=== PATIENT | female | born 1980 | race Caucasian/White ===

== ENCOUNTER 2020-11-19 17:46 | Emergency (ER) | payer MEDICAID ==
[2020-11-19] MEDS ORDERED: Acetaminophen 500 MG Tab PO ONE (18:16)
--- NOTE | 2020-11-19 19:37 | EDM.PDOC ---
ED HPI GENERAL MEDICAL PROBLEM - General Chief Complaint: Head Injury Stated Complaint: "Got hit by a softball." Time Seen by Provider: 11/19/20 18:05 Source of Information: Reports: Patient History Limitations: Reports: No Limitations - History of Present Illness INITIAL COMMENTS - FREE TEXT/NARRATIVE: Susana is a 40 yo female who presents to the ED, accompanied by son's girlf latrell, after getting hit in the top of the head with a baseball. She was at her son's game in [place] standing behind home plate. A foul ball hit her on the top left side of her head. It was witinessed and son's girlfriend states she did not lose consciousness. States she stood there for a second and then walked over to her car. Was able to get into the vehicle and she brought her here. States she immediately smoked a cigarette in her car and afterwards wanted to sleep. Susana remembers getting hit by a ball, some parts she states is a little fuzzy, but otherwise remembers what happened. She states her vision was initially blurry but that has subsided. Has a large lump on the top of her head. Upon arrival patient had a GCS of 15 and A&O X 3. Headache Pain Score (Numeric/FACES): 10 - Related Data Allergies Allergy/AdvReac Type Severity Reaction Status Date / Time No Known Allergies Allergy Verified 11/19/20 19:14 Home Meds: Home Meds Multivitamin [Daily Multiple Vitamin] 1 tab PO DAILY 10/16/15 [History] Pantoprazole [Protonix] 40 mg PO ACBREAKFAST 10/16/15 [History] Venlafaxine HCl [Venlafaxine ER] 225 mg PO DAILY 11/19/20 [History] busPIRone [Buspar] 15 mg PO BID 11/19/20 [History] traZODone 50 mg PO BEDTIME 11/19/20 [History] Past Medical History HEENT History: Reports: None Cardiovascular History: Reports: None Respiratory History: Reports: None Gastrointestinal History: Reports: GERD Genitourinary History: Reports: None Musculoskeletal History: Reports: None Neurological History: Reports: None Psychiatric History: Reports: Addiction, Anxiety, Depression Endocrine/Metabolic History: Reports: None Hematologic History: Reports: None Immunologic History: Reports: None Oncologic (Cancer) History: Reports: None Dermatologic History: Reports: None - Infectious Disease History Infectious Disease History: Reports: Chicken Pox, Measles - Past Surgical History Head Surgeries/Procedures: Reports: None Other GI Surgeries/Procedures: gastric bypass Female Surgical History: Reports: Section Social & Family History - Tobacco Use Tobacco Use Status *Q: Current Every Day Tobacco User Years of Tobacco use: 22 Packs/Tins Daily: 1 - Caffeine Use Caffeine Use: Reports: Soda - Recreational Drug Use Recreational Drug Use: No ED ROS GENERAL - Review of Systems Review Of Systems: See Below HEENT: Reports: No Symptoms Respiratory: Reports: No Symptoms Cardiovascular: Reports: No Symptoms Endocrine: Reports: No Symptoms GI/Abdominal: Reports: No Symptoms : Reports: No Symptoms Musculoskeletal: Reports: No Symptoms. Denies: Neck Pain, Shoulder Pain, Arm Pain, Muscle Pain, Muscle Stiffness Skin: Reports: No Symptoms Neurological: Reports: Headache. Denies: Dizziness, Numbness, Pre-Existing D eficit, Seizure, Tingling, Difficulty Walking, Weakness, Change in Speech Psychiatric: Reports: Anxiety ED EXAM, HEAD INJURY - Physical Exam Exam: See Below Exam Limited By: No Limitations General Appearance: Alert, No Apparent Distress Head: Scalp Hematoma (large left upper parietal hematoma. No bony deficits noted. ), Scalp Tenderness. No: Scalp Abrasions, Scalp Ecchymosis, Active Bleeding, Peña's Sign, Facial Ecchymosis, Facial Swelling, Raccoon Eyes Nexus Criteria: No: Posterior, Midline Cervical Tenderness, Evidence of Intoxication, Altered Level of Consciousness, Focal Neurological Deficit, Pa inful Distraction Injuries Eyes: Bilateral Eye: EOMI, Normal Inspection, PERRL Ears: Normal External Exam, Normal Canal, Hearing Grossly Normal, Normal TMs. 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 nml As Tested, No Motor/Sensory Deficits, Alert, Normal Mood/Affect, Oriented x 3 Skin: Normal Color, Warm/Dry - Sabrina Coma Score Best Eye Response (Sabrina): (4) Open Spontaneously Best Verbal Response (Sabrina): (5) Oriented Best Motor Response (Downey): (6) Obeys Commands Course - Vital Signs Last Recorded V/S: Last Vital Signs Temp 98.3 F 11/19/20 18:20 Pulse 99 11/19/20 18:00 Resp 20 11/19/20 18:00 BP 149/94 H 11/19/20 18:00 Pulse Ox 98 11/19/20 18:00 - Orders/Labs/Meds Meds: Medications Discontinued Medications Generic Name Dose Route Start Last Admin Trade Name Stephan PRN Reason Stop Dose Admin Acetaminophen 1,000 mg 11/19/20 18:16 11/19/20 18:20 Acetaminophen 500 Mg Tab PO 11/19/20 18:17 1,000 mg ONETIME ONE Administration Departure - Departure Time of Disposition: 18:45 Disposition: Home, Self-Care 01 Clinical Impression: Concussion with no loss of consciousness - Discharge Information *PRESCRIPTION DRUG MONITORING PROGRAM REVIEWED*: No *COPY OF PRESCRIPTION DRUG MONITORING REPORT IN PATIENT SEA: No Instructions: Concussion, Adult, [id number], Post-Concussion Syndrome, [id number] Referrals: PCP,None [Ordering Only Provider] - Forms: ED Department Discharge Additional Instructions: 1) May use Tylenol or ibuprofen for discomfort, headaches. 2) Advise no sleeping aid 3) Rest 4) Low lights, no loud noises 5) Recommend refraining from watching a lot of TV/phone/computer use 6) Have some with you for nextg 24 hours to monitor 7) If any worsening of symptoms or concerns, advise returning for revaluation 8) May apply ice to scalp for hematoma. Sepsis Event Note (ED) - Evaluation Sepsis Screening Result: No Definite Risk - Problem List & Annotations (1) Concussion with no loss of consciousness SNOMED Code(s): 51178939 Code(s): S06.0X0A - CONCUSSION WITHOUT LOSS OF CONSCIOUSNESS, INITIAL ENCOU NTER Status: Acute - Problem List Review Problem List Initiated/Reviewed/Updated: Yes - Assessment/Plan Plan: Susana did well in the ED. Event became more clear. CT head was negative. Closely monitored neurological status which continued to improve and was at baseline prior to discharge. No further blurry vision. Dull headache noted to area of hematoma.
== END 2020-11-19 19:45 | disposition home or self-care (01) ==
LOC: CC.ED 17:46
DX: S06.0X9A Concussion with loss of consciousness of unspecified duration, initial encounter (principal); K21.9 Gastro-esophageal reflux disease without esophagitis; Z79.899 Other long term (current) drug therapy; W22.8XXA Striking against or struck by other objects, initial encounter; Y93.64 Activity, baseball
CPT/HCPCS: 70450; 99283; A9270